=== PATIENT | female | born 1995 | race Caucasian/White ===

== ENCOUNTER 2022-10-07 00:41 | Emergency (ER) | payer OTHER, SELFPAY ==
[2022-10-07 00:50] VITALS: BP 110/45; PULSE 64; RESP 18; TEMP 36.4; O2SAT 97; BMI 34.4
--- NOTE | 2022-10-07 01:10 | PC.NURSE ---
Pt presenting to ER 7 months with back pain, pressure, and pulling feeling in her abdomen. Pt stated she feels like the baby is lower than normal. Pt is normally seen at [facility] but did not get a response from them tonight. Pt was placed in room [address] Vargas. An IV was placed in the left AC with 2L of fluid running wide open, per Dr Vargas. At this time, pt is on a chip drier and is resting in bed with her boyfriend at the bedside. We will be looking to transfer the patient to an appropriate facility.
[2022-10-07 01:14] VITALS: BP 149/79; PULSE 66; RESP 16; O2SAT 100
--- NOTE | 2022-10-07 01:15 | ED.GENADULT ---
HPI - General Adult General Chief complaint: Back Pain/Injury Stated complaint: 7 months preg, back pain Time Seen by Provider: 10/07/22 01:01 Source: patient Mode of arrival: ambulatory Limitations: no limitations History of Present Illness HPI narrative: Patient is a at 33 weeks of gestational age with a due date of 12/01/2022. The patient comes to the emergency room complaining lower back pain and significant suprapubic pressure. Patient states it has been constant for approximately 24 hours for gradually getting worse. Patient states that she has not had any contractions, However patient has noticed that she has had significant fluid liquidy vaginal discharge. patient states she feels very uncomfortable. Patient states that yesterday she had vaginal fluid in her underwear, patient states that she Peed on herself couple of times throughout the day Related Data Previous Rx's Medication Instructions Recorded cyclobenzaprine 10 mg tablet 10 mg PO BEDTIME #14 tabs 08/30/21 meloxicam 15 mg tablet 15 mg PO DAILY #14 tabs 08/30/21 Allergies Allergy/AdvReac Type Severity Reaction Status Date / Time No Known Allergies Allergy Verified 10/07/22 00:50 [No Known Allergies*] Review of Systems Review of Systems: Constitutional : No Weight loss, No Fever, No Chills, No Night Sweats, No Fatigue, No Malaise ENT/Mouth : No Hearing loss, No Ear Pain, No Nasal Congestion, No Sinus Pain, No Hoarseness, No sore throat, No Rhinorrhea, No Swallowing Difficulty Eyes: No Eye Pain, No Swelling, No Redness, No Foreign Body, No Discharge, No Vision Changes Cardiovascular : No Chest Pain, No SOB, No Dyspnea on Exertion, No Orthopnea, No Edema, No Palpitations Respiratory : No Cough, No Sputum, No Wheezing, No Smoke Exposure, No Dyspnea Gastrointestinal : No Nausea, No Vomiting, No Diarrhea, No Constipation, No abdominal Pain, No Hematochezia, No Melena Genitourinary : complaining of significant constant suprapubic pressure, moderate amount of vaginal liquidy discharge, no blood, no contractions Musculoskeletal : No joint pain, No Myalgias, No Joint Swelling Skin : No Skin Lesions, No rash Neuro : No Weakness, No Numbness, No Paresthesias, No Loss of Consciousness, No Dizziness, No Headache Psych : No Anxiety/Panic, No Depression, No SI/HI/AH/VH, No Social Issues, Heme/Lymph: No Bruising, No Bleeding,No Lymphadenopathy Endocrine : No Polyuria, No Polydipsia, No Temperature Intolerance my brenda PMFSH Social History Social History Alcohol intake: never Patient Tobacco Use Status: Never used Tobacco Smoked in Last 30 Days: No Use of substances other than those prescribed or required for medical reasons: No Advance Directives: No Advance Directives Information Provided: No Patient : Yes Physical Exam ED Vital Signs: Vital Signs - 24 hr 10/07/22 00:50 10/07/22 01:14 Temperature 97.6 F Pulse Rate 64 66 Respiratory Rate 18 16 Blood Pressure 110/45 L 149/79 H Pulse Oximetry 97 100 Oxygen Delivery Method Room Air Room Air BMI result Body Mass Index 34.4 Const Other: Appearance: Alert. Oriented X3. looks very uncomfortable Eyes: Pupils equal, round and reactive to light. ENT: Pharynx normal. Neck: Normal inspection. Neck supple. No lymph nodes noted. No crepitus CVS: Normal heart rate and rhythm. Pulses normal. Normal S1 and S2 Respiratory: No respiratory distress. Breath sounds normal. No Wheezing. No rales Abdomen: Soft and nontender. No rigidity. No distention. no palpable contractions : cervix is questionably open, there is serosanguineous discharge protruding from the cervical canal, small amount of fluid in the vaginal canal, bedside ultrasound shows a hear rate of 130 Skin: Skin warm and dry. Normal skin color. Normal skin turgor. Extremities: No lower extremity edema. No Lacerations. No Rash Neuro: Oriented X 3. No motor deficit. No sensory deficit. Moving all extremities. No slurred speech. CN 2 through 12 grossly intact Psych: calm, cooperative, normal affect Course Course Course Narrative: we called [facility], they will not accept the patient because she is less than 35 weeks of gestational age. We will go ahead and transfer the patient to [facility]. Call Back pending. Patient getting IV fluids I discussed the patient with OB Gyne resident, patient will be going to w2, Dr. Janki Gupta will be attending physician. At this time, we will hold antibiotics per obgyn recommnedation Medical Decision Making Medical Decision Making Differential Diagnoses: Differential diagnosis ( pre term labor, [place] contractions) Consideration of admission/observation: Consideration of Admission/Observation ( given the patient's physical exam, patient may be on pre term labor. Patient is to be transferred for further monitoring) Critical Care Time Critical Care Time Critical Care Time: Yes Total Critical Care Time: 30 Attestation: I have personally provided critical care time. Time includes review of lab data, radiology results, discussion with consultants, and monitoring for potential decompensation. Intervention performed as documented. Discharge Plan Discharge Clinical Impression: labor Patient Disposition: [facility] Transfer Details: [facility] W2 Prescriptions: No Action cyclobenzaprine 10 mg tablet 10 mg PO BEDTIME Qty: 14 0RF meloxicam 15 mg tablet 15 mg PO DAILY Qty: 14 0RF
--- NOTE | 2022-10-07 01:20 | MHC.EDTECH ---
[facility] Called at 0115 to transfer patent per spoke with Tony the car supervisor ,gave demographics awaiting a call back.Md goodwin
--- NOTE | 2022-10-07 01:23 | MHC.EDTECH ---
Received a call back from [facility] at 0122 spoke with Tony the didn't except patient due to patient being under 35weeks. made aware.
--- NOTE | 2022-10-07 01:26 | MHC.EDTECH ---
[facility]'s Transfer Line called at 0125 per spoke with Pauline gave patient demographics awaiting a call back at this time.Rn aware
[2022-10-07 01:27] LABS: MANUAL DIFF FLAG NO
[2022-10-07 01:29] LABS: Basophils Absolute Auto 0.1 X10*3/uL (0.0-0.2); Basophils Percent Auto 0.3 % (0-2); Eosinophils Absolute Auto 0.1 X10*3/uL (0.0-0.4); Eosinophils Percent Auto 0.4 % (0-4); Hematocrit 28.2 % (37.0-47.0); Imm Gran Pct Auto 1.1 % (0.0-0.4); Lymphocytes Absolute Auto 1.8 X10*3/uL (1.2-4.9); Lymphocytes Percent Auto 9.3 % (20-40); Mean Corpuscular HGB Conc 35.5 g/dl (31.0-35.0); Mean Corpuscular Hemoglobin 33.2 pg (27.0-33.0); Mean Corpuscular Volume 93.7 fL (80.0-98.0); Mean Platelet Volume 9.1 fL (9.4-12.3); Monocytes Absolute Auto 1.3 X10*3/uL (0.1-1.2); Monocytes Percent Auto 6.8 % (2-11); Neutrophils Absolute Auto 15.6 x10*3/uL (2.0-8.3); Neutrophils Percent Auto 82.1 % (45-73); Platelet Count 235 X10*3/uL (160-400); Red Blood Count 3.01 X10*6/uL (4.20-5.50); Red Cell Distribution Width 12.6 % (11.0-16.0)
[2022-10-07 01:44] LABS: COVID-19 Test Negative (Negative); IDNOW Serial# BCCEAD1C
--- NOTE | 2022-10-07 01:44 | MHC.EDTECH ---
[facility] called at 0130,speaking with .
[2022-10-07 01:45] LABS: Alanine Aminotransferase 30 U/L (0-31); Albumin Level 3.2 g/dL (3.5-5.0); Alkaline Phosphatase 86 U/L (39-117); Anion Gap 13 (12-20); Aspartate Amino Transferase 14 U/L (5-31); Bilirubin Total 0.3 mg/dL (0.0-1.0); Blood Urea Nitrogen 9 mg/dL (9-16); Calcium 8.5 mg/dL (8.4-10.2); Carbon Dioxide 21 mmol/L (22-29); Chloride 108 mmol/L (96-108); Creatinine Clr Calc Pharmacy 128.9; Estimated Glomerular Filt Rate > 60; Glucose Random 95 mg/dL (60-115); Potassium 3.7 mmol/L (3.3-5.1); Sodium 138 mmol/L (135-145); Total Protein 4.9 g/dL (6.5-8.0)
--- NOTE | 2022-10-07 01:45 | MHC.EDTECH ---
At 0136 accepted patient to W2 at [facility]. Deana called at 0138 for a stat transfer per CARLYLE Pat within 20mins Rn aware
--- NOTE | 2022-10-07 01:46 | PC.NURSE ---
Report given to Evonne MATA at [facility]. Per US, EMS is on the way to bring the pt to [facility].
--- NOTE | 2022-10-07 01:49 | MHC.EDTECH ---
Ems arrived at 0149 for transport.
[2022-10-07 01:53] VITALS: BP 135/67; PULSE 85; RESP 16; O2SAT 98
--- NOTE | 2022-10-07 02:03 | PC.NURSE ---
Pt transferred to EMS stretcher by assisted stand and pivot and secured. Report given to Evonne at [facility]. Pt condition stable on discharge
== END 2022-10-07 02:02 | disposition short-term general hospital (02) ==
PROVIDERS: Emergency Provider Emergency Medicine
DX: O26.93 Pregnancy related conditions, unspecified, third trimester (principal); Z3A.33 33 weeks gestation of pregnancy; Z79.899 Other long term (current) drug therapy
CPT/HCPCS: 36415; 80053; 85025; 87635; 99283; 99285